=== PATIENT | male | born 2000 ===

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

== ENCOUNTER 2022-08-30 06:42 | Emergency (ER) | payer OTHER, MEDICAID ==
[2022-08-30 06:24] LABS: AMPHETAMINES,URINE NEGATIVE (NEGATIVE); BARBITURATES,URINE NEGATIVE (NEGATIVE); BENZODIAZEPINE,URINE NEGATIVE (NEGATIVE); MDMA (ECSTASY), URINE NEGATIVE (NEGATIVE); METHADONE,URINE NEGATIVE (NEGATIVE); METHAMPHETAMINES,URINE NEGATIVE (NEGATIVE); OPIATES,URINE NEGATIVE (NEGATIVE); OXYCODONE,URINE NEGATIVE (NEGATIVE); PHENCYCLIDINE,URINE NEGATIVE (NEGATIVE); TCA,URINE NEGATIVE (NEGATIVE)
[~2022-08-30 06:42] MED LIST: Sodium Chloride 0.9% 10 ML Syringe FLUSH PRN
[2022-08-30 06:50] LABS: ANION GAP 11.7 mEq/L (7-13); CHLORIDE,CL 107 mmol/L (98-107); ESTIMATED GFR 125 mL/min (>=60); SODIUM,NA 144 mmol/L (136-145)
[2022-08-30 06:51] LABS: PTT,PARTIAL THROMBOPLSTIN TIME 26.7 SEC (22.0-34.0)
[2022-08-30 06:54] VITALS: BP 126/75; PULSE 67
== END 2022-08-30 07:44 | disposition home or self-care (01) ==
LOC: DL.ED 06:42
DX: S00.03XA Contusion of scalp, initial encounter (principal); S40.212A Abrasion of left shoulder, initial encounter; S60.511A Abrasion of right hand, initial encounter; F10.920 Alcohol use, unspecified with intoxication, uncomplicated; Y90.4 Blood alcohol level of 80-99 mg/100 ml; V49.40XA Driver injured in collision with unspecified motor vehicles in traffic accident, initial encounter; Y92.410 Unspecified street and highway as the place of occurrence of the external cause
CPT/HCPCS: 36415; 70450; 71045; 72125; 80053; 80305-QW; 80307; 85025; 85610; 85730; 99285